=== PATIENT | female | born 1990 | race Caucasian/White ===

== ENCOUNTER → 2018-09-15 08:48 | Outpatient (CLI) | payer OTHER, SELFPAY ==
[2018-09-15 10:45] LABS: Absolute Lymphocyte Count 2.45 X10^3/ul (0.83-4.51); Absolute Neutrophil Count 2.5 X10^3/uL (2.0-7.7); Basophil# 0.05 X10^3/uL; Basophil% 0.8 % (0-1); Eosinophil# 0.66 X10^3/uL; Eosinophils% 10.7 % (0-5); Hematocrit 45.7 % (37-47); Hemoglobin 14.7 g/dl (12.0-15.0); Lymphocyte # 2.45 X10^3/ul (4.0); Lymphocyte % 39.6 % (19-41); Mean Corp Hgb Conc 32.2 g/gl (32-36); Mean Corpuscular Hgb 30.6 pg (27.0-32.0); Mean Corpuscular Volume 95.2 fL (81-99); Mean Platelet Vol. 10.3 fl (6.2-12.0); Monocyte# 0.51 X10^3/uL; Monocyte% 8.2 % (0-10); Neutrophil # 2.52 X10^3/uL (2.7-7.7); Neutrophil % 40.7 % (47-70); Platelet Count 273 K/mm3 (150-450); RBC Distribution Width CV 12.6 % (11.6-14.6); White Blood Count 6.2 K/mm3 (4.4-11.0)
[2018-09-15 10:46] LABS: POSITIVE COUNT NO; POSITIVE DIFFERENTIAL NO; POSITIVE MORPHOLOGY NO
[2018-09-18 08:33] LABS: Alternaria tenuis <0.10 kU/L (Class 0); Ash, White 0.11 kU/L (Class 0/I); Aspergillus fumigatus 1.29 kU/L (Class II); Bermuda Grass 3.06 kU/L (Class III); Black Walnut 0.23 kU/L (Class 0/I); Cat Hair / Dander,Stand >100 kU/L (Class VI); Cedar, Mountain 0.11 kU/L (Class 0/I); Cladosporium herbarum <0.10 kU/L (Class 0); Cockroach, American <0.10 kU/L (Class 0); Cottonwood 0.19 kU/L (Class 0/I); Dog Epithelia 8.69 kU/L (Class IV); Elm, American White 0.15 kU/L (Class 0/I); Immunoglobulin E 1417 IU/mL (0-100); Maple/Box Elder 3.21 kU/L (Class III); Mulberry, White <0.10 kU/L (Class 0); Oak, White 0.21 kU/L (Class 0/I); Pecan 0.16 kU/L (Class 0/I); Penicillium Notatum <0.10 kU/L (Class 0); Pigweed, Rough <0.10 kU/L (Class 0); Russian Thistle 0.21 kU/L (Class 0/I); Sheep Sorrel 0.24 kU/L (Class 0/I); Sycamore, American 0.18 kU/L (Class 0/I)
[2018-09-20 09:14] LABS: Mouse Urine 0.38 kU/L (Class I)
[2018-09-20 09:15] LABS: Immunoglobulin E 1482 IU/mL (0-100)
== END ==
PROVIDERS: Family Provider Family Medicine; PCP Family Medicine; Referring Provider Internal Medicine Critical Care Medicine; Visit Provider Internal Medicine Critical Care Medicine
DX: J45.909 Unspecified asthma, uncomplicated (principal)
CPT/HCPCS: 36415; 82785; 85025; 86003

== ENCOUNTER → 2018-09-28 07:01 | Outpatient (CLI) | payer OTHER, SELFPAY ==
--- NOTE | 2018-09-28 15:54 | PFTCOMP ---
COMPLETE PULMONARY FUNCTION TEST INTERPRETATION Brief HPI: Patient is a 28 year old female, currently under the care of Dr. Enamorado, who presents to [facility] for complete pulmonary function tests secondary to diagnosis of asthma. Respiratory therapist reports good effort and reproducible results. Interpretation: Forced expiration spirometry shows a mild large airways obstructive ventilatory defect with an FEV1 of 78% predicted. There is a significant bronchodilator response in FEV1 by 29% using strict ATS criteria. Spirograms are of good quality and plateau slowly, indicating slowly emptying areas of the lungs. The respiratory flow volume loop shows decreased expiratory flow rates at all lung volumes consistent with airway obstruction. Lung volumes by body plethysmography show a normal total lung capacity at 5.13 L, 96% predicted. All other lung volumes are within normal limits. Diffusion capacity by carbon monoxide is normal at 107% predicted. The airway resistance is elevated. No previous pulmonary function tests were available for review. Impression: Fully reversible mild large airways obstructive ventilatory defect consistent with a diagnosis of asthma.
--- NOTE | 2018-09-28 15:58 | PFTCOMP_ITS ---
COMPLETE PULMONARY FUNCTION TEST INTERPRETATION Brief HPI: Patient is a 28 year old female, currently under the care of Dr. Enamorado, who presents to [facility] for complete pulmonary function tests secondary to diagnosis of asthma. Respiratory therapist reports good effort and reproducible results. Interpretation: Forced expiration spirometry shows a mild large airways obstructive ventilatory defect with an FEV1 of 78% predicted. There is a significant bronchodilator response in FEV1 by 29% using strict ATS criteria. Spirograms are of good quality and plateau slowly, indicating slowly emptying areas of the lungs. The respiratory flow volume loop shows decreased expiratory flow rates at all lung volumes consistent with airway obstruction. Lung volumes by body plethysmography show a normal total lung capacity at 5.13 L, 96% predicted. All other lung volumes are within normal limits. Diffusion capacity by carbon monoxide is normal at 107% predicted. The airway resistance is elevated. No previous pulmonary function tests were available for review. Impression: Fully reversible mild large airways obstructive ventilatory defect consistent with a diagnosis of asthma.
== END ==
PROVIDERS: Family Provider Family Medicine; PCP Family Medicine; Referring Provider Internal Medicine Critical Care Medicine; Visit Provider Internal Medicine Critical Care Medicine
DX: J45.909 Unspecified asthma, uncomplicated (principal)
CPT/HCPCS: 94060; 94726; 94729

== ENCOUNTER → 2018-12-14 15:26 | Outpatient (CLI) | payer OTHER, SELFPAY ==
[2018-12-14 15:02] VITALS: BMI 30.4
== END ==
PROVIDERS: Family Provider Family Medicine; PCP Family Medicine; Referring Provider Nurse Practitioner Acute Care; Visit Provider Nurse Practitioner Acute Care
DX: J45.909 Unspecified asthma, uncomplicated (principal)
CPT/HCPCS: 87070; 87205; 87633

== ENCOUNTER → 2019-12-31 13:26 | Outpatient (CLI) | payer OTHER, SELFPAY ==
[2019-10-22 15:57] VITALS: BMI 29.8
[2019-12-31 15:30] LABS: Absolute Lymphocyte Count 1.31 X10^3/uL (0.83-4.51); Absolute Neutrophil Count 6.4 X10^3/uL (2.0-7.7); Basophil# 0.08 X10^3/uL; Basophil% 0.9 % (0-1); Eosinophil# 0.43 X10^3/uL; Hematocrit 44.5 % (37-47); Hemoglobin 14.5 g/dL (12.0-15.0); Lymphocyte # 1.31 X10^3/ul (4.0); Lymphocyte % 15.2 % (19-41); Mean Corp Hgb Conc 32.6 g/dL (32-36); Mean Corpuscular Hgb 30.6 pg (27.0-32.0); Mean Corpuscular Volume 93.9 fL (81-99); Mean Platelet Vol. 9.3 fl (6.2-12.0); Monocyte% 4.6 % (0-10); NRBC Flagged by Analyzer 0 % (0-5); Neutrophil # 6.36 X10^3/uL (2.7-7.7); Neutrophil % 73.8 % (47-70); Platelet Count 309 K/mm3 (150-450); RBC Distribution Width SD 41.9 fl (35.1-43.9); Red Blood Count 4.74 M/mm3 (4.2-5.4); White Blood Count 8.6 K/mm3 (4.4-11.0)
[2019-12-31 15:59] LABS: Vitamin D,25 Hydroxy 14.2 ng/mL
[2019-12-31 16:04] LABS: ALB/GLOB Ratio 0.8 RATIO (0.9-2.4); AST(SGOT) 11 U/L (15-37); Alanine Aminotransfer ALT/SGPT 66 U/L (13-56); Albumin, Serum 3.3 g/dL (3.2-5.0); Alkaline Phosphatase 71 U/L (45-117); Anion Gap 5 (5-15); BUN 16 mg/dL (7-18); BUN/Creat Ratio 18.8 RATIO (10-20); Calcium,Total 8.4 mg/dL (8.5-10.1); Chloride 112 mmol/L (98-107); Creatinine, Serum 0.85 mg/dL (0.55-1.02); EST Glomerular Filtration Rate 85 mL/min (>60); Est Glom Filt Rate - Afr Amer 102 mL/min (>60); Estradiol 22.3 pg/mL; Free T3 2.1 pg/mL (2.18-3.98); Globulin 3.9 g/dL (2.2-4.2); Glucose 84 mg/dL (74-106); Protein, Total 7.2 g/dL (6.4-8.2); Sodium Level 142 mmol/L (136-145); T4 Free Direct 0.89 ng/dL (0.76-1.46); Thyroid Stim Hormone (TSH) 1.44 uIU/mL (0.358-3.74)
== END ==
PROVIDERS: PCP Family Medicine; Referring Provider Family Medicine; Visit Provider Family Medicine
DX: R53.83 Other fatigue (principal); R61 Generalized hyperhidrosis; E78.5 Hyperlipidemia, unspecified; Z51.81 Encounter for therapeutic drug level monitoring
CPT/HCPCS: 36415; 80053; 82306; 82670; 84439; 84443; 84481; 85025

== ENCOUNTER → 2021-02-14 08:10 | Outpatient (CLI) | payer OTHER, SELFPAY ==
[2021-02-14 07:46] VITALS: BMI 34.7
[2021-02-14 08:48] LABS: Absolute Lymphocyte Count 2.19 X10^3/uL (0.83-4.51); Absolute Neutrophil Count 5.5 X10^3/uL (2.0-7.7); Basophil# 0.05 X10^3/uL; Basophil% 0.6 % (0-1); Eosinophil# 0.54 X10^3/uL; Eosinophils% 6.2 % (0-5); Hematocrit 46.4 % (37-47); Hemoglobin 14.7 g/dL (12.0-15.0); Lymphocyte # 2.19 X10^3/ul (4.0); Mean Corp Hgb Conc 31.7 g/dL (32-36); Mean Corpuscular Volume 94.7 fL (81-99); Mean Platelet Vol. 9.7 fl (6.2-12.0); Monocyte# 0.45 X10^3/uL; Monocyte% 5.1 % (0-10); NRBC Flagged by Analyzer 0 % (0-5); Neutrophil # 5.49 X10^3/uL (2.7-7.7); Neutrophil % 62.8 % (47-70); Platelet Count 305 K/mm3 (150-450); RBC Distribution Width CV 12.7 % (11.6-14.6); RBC Distribution Width SD 43.8 fl (35.1-43.9); White Blood Count 8.8 K/mm3 (4.4-11.0)
[2021-02-19 03:06] LABS: Cytoplasmic Ab (C-ANCA) <1:20 titer (Neg:<1:20)
[2021-02-19 09:28] LABS: Immunoglobulin E 2290 IU/mL (6-495); Perinuclear Ab (P-ANCA) <1:20 titer (Neg:<1:20)
== END ==
LOC: PAVLAB 08:12
PROVIDERS: PCP Family Medicine; Referring Provider Internal Medicine Critical Care Medicine; Visit Provider Internal Medicine Critical Care Medicine
DX: J45.909 Unspecified asthma, uncomplicated (principal)
CPT/HCPCS: 36415; 82785; 85025; 86256

== ENCOUNTER → 2024-03-10 | Outpatient (CLI) | payer BC, SELFPAY ==
[2024-03-10 17:30] LABS: Absolute Lymphocyte Count 1.94 X10^3/uL (0.83-4.51); Absolute Neutrophil Count 4.8 X10^3/uL (2.0-7.7); Basophil# 0.08 X10^3/uL; Eosinophil# 0.46 X10^3/uL; Eosinophils% 5.9 % (0-5); Hematocrit 42.4 % (37-47); Hemoglobin 13.5 g/dL (12.0-15.0); Lymphocyte # 1.94 X10^3/ul (0.83-4.51); Mean Corp Hgb Conc 31.8 g/dL (32-36); Mean Corpuscular Hgb 29.3 pg (27.0-32.0); Mean Corpuscular Volume 92.2 fL (81-99); Mean Platelet Vol. 9.3 fl (6.2-12.0); Monocyte# 0.46 X10^3/uL; Monocyte% 5.9 % (0-10); NRBC Flagged by Analyzer 0 % (0-5); Neutrophil # 4.79 X10^3/uL (2.7-7.7); Neutrophil % 61.9 % (47-70); Platelet Count 341 K/mm3 (150-450); RBC Distribution Width CV 13.5 % (11.6-14.6); RBC Distribution Width SD 45.5 fl (35.1-43.9); White Blood Count 7.8 K/mm3 (4.4-11.0)
[2024-03-10 17:53] LABS: ALB/GLOB Ratio 0.9 RATIO (0.9-2.4); AST(SGOT) 11 U/L (15-37); Alanine Aminotransfer ALT/SGPT 56 U/L (13-56); Albumin, Serum 3.2 g/dL (3.2-5.0); Alkaline Phosphatase 77 U/L (45-117); Anion Gap 5 (5-15); BUN 15 mg/dL (7-18); BUN/Creat Ratio 20.4 RATIO (10-20); Calcium,Total 8.7 mg/dL (8.5-10.1); Chloride 110 mmol/L (98-107); Creatinine, Serum 0.74 mg/dL (0.55-1.02); EST Glomerular Filtration Rate 97 mL/min (>60); Est Glom Filt Rate - Afr Amer 118 mL/min (>60); Ferritin 7 ng/mL (8-252); Free T3 2.7 pg/mL (2.18-3.98); Globulin 3.7 g/dL (2.2-4.2); Glucose 88 mg/dL (74-106); Iron 100 ug/dL (50-170); Potassium 3.9 mmol/L (3.5-5.1); Protein, Total 6.9 g/dL (6.4-8.2); Sodium Level 140 mmol/L (136-145); T4 Free Direct 0.96 ng/dL (0.76-1.46); Thyroid Stim Hormone (TSH) 1.82 uIU/mL (0.358-3.74)
== END | disposition home or self-care (01) ==
PROVIDERS: PCP Family Medicine; Referring Provider Family Medicine; Visit Provider Family Medicine
DX: D64.9 Anemia, unspecified (principal); R53.83 Other fatigue; N92.1 Excessive and frequent menstruation with irregular cycle
CPT/HCPCS: 36415; 80053; 82728; 83540; 84439; 84443; 84481; 85025

== ENCOUNTER → 2025-08-01 | Outpatient (CLI) | payer BC, SELFPAY ==
--- OUTSIDE RECORDS SUMMARY | 2024-11-17 16:00 | XMS RPT_ITS ---
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 Name Role Phone KYLIE BEASLEY Admitting Unavailable KYLIE BEASLEY Attending Unavailable MALYS, TAMRA A Primary Care Unavailable BRAZOFSKCHRISTO Dewitt Attending Unavailable MALYS, TAMRA A Primary Care Unavailable KYLIE BEASLEY Attending Unavailable MALYS, TAMRA A Primary Care Unavailable BEASLEYKYLIE AGUILAR Attending Unavailable MALYS, TAMRA A Primary Care Unavailable KYLIE BEASLEY Referring Unavailable MALYS, TAMRA A Primary Care Unavailable BEASLEY, KYLIE Referring Unavailable MALYS, TAMRA A Primary Care Unavailable PROBLEMS DATE TYPE CONDITION / CODE ATTENDING STATUS [facility] 09/27/2024 Active Post-operative s florez / Z98.890(ICD-10) KYLIE BEASLEY [facility] 09/27/2024 Active Menorrhagia with regular cycle / N92.0(ICD-10) KYLIE BEASLEY [facility] 09/27/2024 Active Dysmenorrhea / N94.6(ICD-10) KYLIE BEASLEY [facility] 09/27/2024 Active Preop examinatio n / Z01.818(ICD-10) KYLIE BEASLEY [facility] 09/20/2024 Active Pre-op testing / Z01.818(ICD-10) NA Active [facility] 09/03/2024 Active Pre-op evaluatio n / Z01.818(ICD-10) NA Active [facility] PROCEDURES No Procedure Records Found RESULTS CNOV Observed: 11/17/2024 3:00 PM Status: COMPLETED Source: [facility] Office Visit (GMIGFV) CRISPIN SPARKS ([id number]) 1990 F Date Time Provider Department 11/17/24 3:00 PM KYLIE BEASLEY [facility] During your visit today, we recorded the following information about you: Pulse Blood pressure Weight Height 94/minute 139/91 105.7 kg 1.6 m Last Period 09/06/24 Kylie Beasley MD 11/17/2024 4:19 PM Addendum [facility] SECTION FOR MINIMALLY INVASIVE GYNECOLOGIC SURGERY OUTPATIENT VISIT DATE 11/17/2024 OUTPATIENT VISIT TYPE POST OPERATIVE FOLLOW UP History: Crispin Sparks is a 34 year old female here for post operative follow up appointment. She underwent Laparoscopic supracervical hysterectomy, bilateral salpingectomy, left oophorectomy, excision of endometriosis, cystoscopy on 09/27/24 indicated for chronic pelvic pain, endometriosis . She reports feeling really well since her procedure. Her appetite is normal . She describes her pain as no pain presently. She is currently taking nothing for pain control. She has not had sexual intercourse since the procedure. Denies nausea/vomiting/chest pain/shortness of breath. Ambulating well. No issues with voiding or BMs. Had 3-4 days of light spotting at time expected menses past month. No other vag bleeding. FINDINGS 1) Exam under anesthesia: Normal external genitalia, normal size uterus, no rectovaginal nodularity, cervical ectropion. 2) Laparoscopy: Anterior cul-de-sac - normal-appearing Posterior cul-de-sac - Several dark brown subcentimeter lesions on the posterior cervix peritoneum and the left uterosacral ligament insertion involved with adhesions of the left ovary and endometrioma. Left ovarian fossa - Obliterated by the left ovary adhesions to the left uterosacral lesion. Right ovarian fossa - normal-appearing Uterosacral ligaments - Left uterosacral involved as described above. Uterus - normal-appearing Ovaries and fallopian tubes - Fallopian tubes normal bilaterally, normal right ovary, left ovary with 2 cm endometrioma. Bowel and appendix - normal-appearing, mild adhesions of the cecum to the right abdominal wall -lysed Diaphragmatic peritoneum - normal-appearing 3) Cystoscopy: bilateral ureters patent as indicated by strong jets of urine from bilateral ureteral ostia and intact bladder urothelium, normal urinary trigone. PATHOLOGY FINAL DIAGNOSIS A. Posterior cervix, biopsy: - Benign stroma. B. Right fallopian tube, salpingectomy: - Unremarkable fallopian tube. C. Left uterosacral ligament, excision: - Endometriosis. D. Uterus and left adnexa; supracervical hysterectomy and left salpingo-oophorectomy: - Secretory endometrium. - Endometriosis, ovary. - Unremarkable fallopian tube. Eva Vogel RN November 17, 2024 3:03 PM ROS: Constitutional: Denies fever or chills GI: Denies abdominal pain, nausea, vomiting, bloody stools or diarrhea : Denies dysuria Integument: Denies rash Psychiatric: Denies depression or anxiety Exam: The sensitive examination was discussed with the Patient or Patient's Authorized Portable Track Line Marker. As applicable, any other physician, advance practice provider, medical student, or other health professional student that will be observing or involved in the sensitive examination for educational or training purposes was discussed with the Patient or Authorized Portable Track Line Marker. The Patient or Authorized Portable Track Line Marker has agreed to proceed with the sensitive examination. (Sensitive examination includes inspection and/or palpation of the breasts, pelvis, prostate and anorectal regions) Vitals: 11/17/24 1459 BP: 139/91 Pulse: 94 Weight: 105.7 kg (233 lb) Height: 160 cm (5' 3) No data recorded Body mass index is 41.27 kg/m?. GENERAL: pleasant, female in no apparent distress HEENT: Normocephalic, atraumatic DERMATOLOGY: Normal, without lesions and non-hirsute CHEST: Normal inspiratory effort ABDOMEN: Abdomen soft, nondistended, non-tender. Incisions well healed. PELVIC: External genitalia normal. Vagina normal on speculum exam. Cervix normal appearing without lesion or defect. Silver nitrate applied to external cervical os LOWER EXTREMITIES: No pitting edema and no skin changes Assessment: Ms. Crispin Sparks is a 34 year old female presenting for postop check status post Laparoscopic supracervical hysterectomy, bilateral salpingectomy, left oophorectomy, excision of endometriosis, cystoscopy . She reports doing well without concerns. Plan: - Reviewed intra-op findings, photos and pathology results. -May continue to increase physical activity as tolerated -May resume intercourse -Follow up with general provider for annual care. Advised will need continued routine screening pap smears. (Last 11/2023- WNL) -All questions answered and pt agrees with plan Kylie Beasley MD Allergies As of Date: 11/17/2024 Noted Allergy Reaction DUST MITES 07/10/2016 14 - Other: See Comments Comments: Sneezing red eyes--- Cat, dog EPOXY RESIN 07/10/2016 2 - Rash Date Reviewed: 11/17/2024 Reviewed by: Eva Vogel RN - Fully Assessed Reason for Visit: Post-Op Visit [1236] Primary Visit Diagnosis:Postoperative state [Z98.890] Other Visit Diagnosis:Endometriosis [N80.9] Prescriptions as of 11/17/2024 - tiotropium bromide (SPIRIVA RESPIMAT) 1.25 mcg/actuation inhaler - levalbuterol tartrate HFA 45 mcg/actuation inhaler - FLUoxetine (PROZAC) 40 mg capsule Take 40 mg by mouth once daily. - triamcinolone acetonide (NASACORT ALLERGY NASAL) Use in the nose. - omeprazole (PRILOSEC) 10 mg capsule Take 10 mg by mouth once daily. - fluticasone-salmeterol (ADVAIR DISKUS) 250-50 mcg/dose dsdv Inhale 1 Puff as instructed twice daily. - Cetirizine (ZYRTEC) 10 mg cap Take by mouth. - montelukast (SINGULAIR) 10 mg tablet Take 10 mg by mouth daily at bedtime. - albuterol (PROVENTIL) 2.5 mg/0.5 mL nebulizer solution Use 2.5 mg via nebulizer every 6 hours as needed. Problem List As Of Date 11/17/2024 Noted Resolved Weight loss of more than 10% body weight [R63.4]01/17/2017 Abdominal cramping [R10.9] 01/17/2017 Diarrhea [R19.7] 01/17/2017 Asthma [J45.909] 04/07/2017 Eczema [L30.9] 04/07/2017 Seasonal allergies [J30.2] 04/07/2017 Weight loss [R63.4] 04/07/2017 Class 2 obesity in adult [E66.812] 09/03/2024 GERD (gastroesophageal reflux disease) [K21.9] 09/03/2024 Encounter Status:Closed by KYLIE BEASLEY on 11/17/24 PROGRESS Observed: 11/17/2024 3:00 PM Status: COMPLETED Source: [facility] ID: [id number] Author: KYLIE BEASLEY MD Service: ? Author Type: Physician Type: Progress Notes Filed: 11/17/2024 16:19 Note Text: [facility] SECTION FOR MINIMALLY INVASIVE GYNECOLOGIC SURGERY OUTPATIENT VISIT DATE 11/17/2024 OUTPATIENT VISIT TYPE POST OPERATIVE FOLLOW UP History: Crispin Sparks is a 34 year old female here for post operative follow up appointment. She underwent Laparoscopic supracervical hysterectomy, bilateral salpingectomy, left oophorectomy, excision of endometriosis, cystoscopy on 09/27/24 indicated for chronic pelvic pain, endometriosis . She reports feeling really well since her procedure. Her appetite is normal . She describes her pain as no pain presently. She is currently taking nothing for pain control. She has not had sexual intercourse since the procedure. Denies nausea/vomiting/chest pain/shortness of breath. Ambulating well. No issues with voiding or BMs. Had 3-4 days of light spotting at time expected menses past month. No other vag bleeding. FINDINGS 1) Exam under anesthesia: Normal external genitalia, normal size uterus, no rectovaginal nodularity, cervical ectropion. 2) Laparoscopy: Anterior cul-de-sac - normal-appearing Posterior cul-de-sac - Several dark brown subcentimeter lesions on the posterior cervix peritoneum and the left uterosacral ligament insertion involved with adhesions of the left ovary and endometrioma. Left ovarian fossa - Obliterated by the left ovary adhesions to the left uterosacral lesion. Right ovarian fossa - normal-appearing Uterosacral ligaments - Left uterosacral involved as described above. Uterus - normal-appearing Ovaries and fallopian tubes - Fallopian tubes normal bilaterally, normal right ovary, left ovary with 2 cm endometrioma. Bowel and appendix - normal-appearing, mild adhesions of the cecum to the right abdominal wall -lysed Diaphragmatic peritoneum - normal-appearing 3) Cystoscopy: bilateral ureters patent as indicated by strong jets of urine from bilateral ureteral ostia and intact bladder urothelium, normal urinary trigone. PATHOLOGY FINAL DIAGNOSIS A. Posterior cervix, biopsy: - Benign stroma. B. Right fallopian tube, salpingectomy: - Unremarkable fallopian tube. C. Left uterosacral ligament, excision: - Endometriosis. D. Uterus and left adnexa; supracervical hysterectomy and left salpingo-oophorectomy: - Secretory endometrium. - Endometriosis, ovary. - Unremarkable fallopian tube. Eva Vogel RN November 17, 2024 3:03 PM ROS: Constitutional: Denies fever or chills GI: Denies abdominal pain, nausea, vomiting, bloody stools or diarrhea : Denies dysuria Integument: Denies rash Psychiatric: Denies depression or anxiety Exam: The sensitive examination was discussed with the Patient or Patient's Authorized Portable Track Line Marker. As applicable, any other physician, advance practice provider, medical student, or other health professional student that will be observing or involved in the sensitive examination for educational or training purposes was discussed with the Patient or Authorized Portable Track Line Marker. The Patient or Authorized Portable Track Line Marker has agreed to proceed with the sensitive examination. (Sensitive examination includes inspection and/or palpation of the breasts, pelvis, prostate and anorectal regions) Vitals: 11/17/24 1459 BP: 139/91 Pulse: 94 Weight: 105.7 kg (233 lb) Height: 160 cm (5' 3) No data recorded Body mass index is 41.27 kg/m?. GENERAL: pleasant, female in no apparent distress HEENT: Normocephalic, atraumatic DERMATOLOGY: Normal, without lesions and non-hirsute CHEST: Normal inspiratory effort ABDOMEN: Abdomen soft, nondistended, non-tender. Incisions well healed. PELVIC: External genitalia normal. Vagina normal on speculum exam. Cervix normal appearing without lesion or defect. Silver nitrate applied to external cervical os LOWER EXTREMITIES: No pitting edema and no skin changes Assessment: Ms. Crispin Sparks is a 34 year old female presenting for postop check status post Laparoscopic supracervical hysterectomy, bilateral salpingectomy, left oophorectomy, excision of endometriosis, cystoscopy . She reports doing well without concerns. Plan: - Reviewed intra-op findings, photos and pathology results. -May continue to increase physical activity as tolerated -May resume intercourse -Follow up with general provider for annual care. Advised will need continued routine screening pap smears. (Last 11/2023- WNL) -All questions answered and pt agrees with plan Kylie Beasley MD PROGRESS Observed: 10/12/2024 9:00 AM Status: COMPLETED Source: [facility] HNO ID: [id number] Author: CHRISTO JUAREZ APRN.PATIENT INSURANCE CLERK Service: ? Author Type: Nurse Practitioner Type: Progress Notes Filed: 10/12/2024 09:04 Note Text: [facility] Department of Minimally Invasive FOLDER MACHINE OPERATOR Surgery [facility] PATIENT NAME: Crispin Sparks DATE: 10/12/2024 Patient Name and verified: Yes Patient Location: [place] This Virtual Visit was completed using My Chart Zoom platform. I have communicated my name and active licensure. The patient's identity and physical location were verified at the time of this visit. Either the patient or their legal patient services representative has been informed of the risks and benefits of -- and alternatives to -- treatment through a remote evaluation and consents to proceed with the evaluation remotely. Chief Complaint CC/REASON FOR VISIT: Post Op History of Present Illness: Crispin is a 34 year old who presents for a post op [facility] visit. SURGERY AND DATE: 09/27/2024 [facility] [place] with Dr. Beasley PATHOLOGY: FINAL DIAGNOSIS A. Posterior cervix, biopsy: - Benign stroma. B. Right fallopian tube, salpingectomy: - Unremarkable fallopian tube. C. Left uterosacral ligament, excision: - Endometriosis. D. Uterus and left adnexa; supracervical hysterectomy and left salpingo-oophorectomy: - Secretory endometrium. - Endometriosis, ovary. - Unremarkable fallopian tube. SUBJECTIVE/INTERVAL HISTORY: Crispin Sparks reports that she feels well. No fever or chills. No shortness of breath, cough, or chest pain. No incisional redness, swelling, or drainage. Patient reports that her appetite is good. No abdominal pain, nausea, vomiting, diarrhea, or constipation. No dysuria, gross hematuria, urinary frequency, urinary urgency, or incontinence. Feels well but is fatigued Rates post op pain as 1/10 on average the past few days. She is not taking OTC pain medications still. Last day taking narcotic pain medication? NA She is up and moving every 2 hours during the day Past Medical History: PAST MEDICAL HISTORY Diagnosis Date Asthma Chronic pain in female pelvis Dysmenorrhea Eczema Seasonal allergies 04/07/2017 Shingles Family History: Family History Problem Relation Age of Onset Asthma Father other (Cancer, unknown type) Father 65 other (uterine cancer) Mother 50 Asthma Brother Past Surgical History: PAST SURGICAL HISTORY Procedure Laterality Date COLONOSCOPY FLX DX W/COLLJ SPEC WHEN PFRMD 04/08/2017 Colonoscopy ESOPHAGOGASTRODUODENOSCOPY TRANSORAL DIAGNOSTIC 04/08/2017 repeat in 2-3 yrs for questionable area of Barnes's Social History: Social History Tobacco Use Smoking status: Every Day Current packs/day: 0.50 Average packs/day: 0.5 packs/day for 14.9 years (7.5 ttl pk-yrs) Types: Cigarettes Start date: 2009 Passive exposure: Current Smokeless tobacco: Never Vaping Use Vaping status: Never Used Substance Use Topics Alcohol use: Not Currently Comment: has a drink 1x/month Drug use: No Allergies: ALLERGIES Allergen Reactions Dust Mites Other: See Comments Sneezing red eyes--- Cat, dog Epoxy Resin Rash Allergies updated: Yes Medications: Current Outpatient Medications Medication Sig ibuprofen (MOTRIN) 600 mg tablet Take 1 tablet by mouth every 6 hours as needed for pain. acetaminophen (TYLENOL EXTRA STRENGTH) 500 mg tablet Take 2 tablets by mouth every 6 hours as needed for pain. Senna 8.6 mg tab Take 1 tablet by mouth two times a day. tiotropium bromide (SPIRIVA RESPIMAT) 1.25 mcg/actuation inhaler levalbuterol tartrate HFA 45 mcg/actuation inhaler FLUoxetine (PROZAC) 40 mg capsule Take 40 mg by mouth once daily. triamcinolone acetonide (NASACORT ALLERGY NASAL) Use in the nose. omeprazole (PRILOSEC) 10 mg capsule Take 10 mg by mouth once daily. fluticasone-salmeterol (ADVAIR DISKUS) 250-50 mcg/dose dsdv Inhale 1 Puff as instructed twice daily. Cetirizine (ZYRTEC) 10 mg cap Take by mouth. montelukast (SINGULAIR) 10 mg tablet Take 10 mg by mouth daily at bedtime. albuterol (PROVENTIL) 2.5 mg/0.5 mL nebulizer solution Use 2.5 mg via nebulizer every 6 hours as needed. No current facility-administered medications for this visit. Medications reviewed in detail and updated PRN. Yes Physical Exam: LMP 09/06/2024 (Exact Date) GENERAL: pleasant, euthymic sounding female in no apparent distress Physical exam otherwise deferred Recent labs/Diagnostic studies: I have thoroughly reviewed this patients previous notes, encounters, labs, and results prior to this visit. Assessment and Plan Assessment AND Plan Postop check 1) Discussed results of pathology and implications with patient. 2) Postop restrictions and wound care reviewed. 3) Keep follow up with Dr. Beasley on 11/17/2024. Appointments for Next 60 Days Date Time Provider Location Dept Phone 10/12/2024 9:00 AM CHRISTO JUAREZ [email or web address] [phone] 11/08/2024 10:00 AM LAWSON NICKY [facility] [phone] 11/17/2024 11:45 AM KYLIE BEASLEY [email or web address] [phone] SIGNATURE: Christo Juarez APRN.CNP CNPN Observed: 09/29/2024 12:00 AM Status: COMPLETED Source: [facility] Telephone (GYNMN) CRISPIN SPARKS ([id number]) 1990 F Date Time Provider Department 09/29/24 KYLIE BEASLEY GYNN[facility] During your visit today, we recorded the following information about you: Marce Campos RN 09/29/2024 9:59 AM Signed [facility] SECTION FOR MINIMALLY INVASIVE GYNECOLOGIC SURGERY AND CHRONIC PELVIC PAIN Postop call Called Patient. Left message. POD# NUMBERS 1-12: [address] Beasley. Procedure: (from op note) Laparoscopic supracervical hysterectomy, bilateral salpingectomy, left oophorectomy, excision of endometriosis, cystoscopy Marce Campos RN September 29, 2024 9:59 AM TonyUsman Claudia Merle 10/05/2024 8:19 AM Signed Patient returning nurse call Transferred to NT/no answer will send message Althea Knight RN 10/06/2024 10:05 AM Signed Phoned pt, verified name/ [facility] SECTION FOR MINIMALLY INVASIVE GYNECOLOGIC SURGERY AND CHRONIC PELVIC PAIN Postop call POD# [address] Beasley. Procedure: (from op note) 09/27/24 Laparoscopic supracervical hysterectomy, bilateral salpingectomy, left oophorectomy, excision of endometriosis, cystoscopy Reassured regarding typical pain and recovery following laparoscopic surgery. Reviewed pain medication use for optimal postoperative pain control. Reminded to ambulate every 2 hours while awake Doing well, managing pain with Tylenol and Ibuprofen just as needed. Pt is up and around ambulating. Reminded of normal return of bowel function, management of constipation. Daily BM, taking SENNA only as needed now. Reminded contact numbers are listed in their postop instructions After hours fellow manager of community relations [phone] Office number [phone] (M-F, 8-4:30) Patient advised to call 911 or report to ED Fever (temperature greater than 100.4 degrees) Pain that is worsening or not relieved by pain medications. Nausea, vomiting or diarrhea that is not improving Blood, pus, or opening of incision(s) Heavy vaginal bleeding (more than a period) Shortness of breath Swollen or tender lower leg Lightheadedness, dizziness, or fainting Patient expressed understanding. Post op appointment: 10/12/24 PATIENT INSURANCE CLERK VV 11/17/23 Dr. Beasley Patient questions/concerns: Pt removed umbilical gauze dressing after surgery as advised. Left lower quadrant lap incision draining clear pink drainage. No redness or swelling. Pt knows to monitor AND call office for incisional redness, swelling, or pus like thick drainage. Questions about FMLA - work place is telling pt paperwork is incomplete. Reviewed scanned FMLA docs with return date of 11/09/23. Per pt, discussed with Dr. Beasley, OK for 8 week recovery/return to work. 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 Will forward to payroll secretary Yudy Bryan for assistance. DAPHNE Noel Ellen L, RN 10/06/2024 2:39 PM Signed Phoned pt, verified name/ Advised FMLA paperwork has been revised, faxed AND sent to pt via . Understanding voiced. Althea Dolan RN Allergies As of Date: 09/29/2024 Noted Allergy Reaction DUST MITES 07/10/2016 14 - Other: See Comments Comments: Sneezing red eyes--- Cat, dog EPOXY RESIN 07/10/2016 2 - Rash Date Reviewed: 09/27/2024 Reviewed by: Malissa Valdez RN - Fully Assessed Reason for Visit: Post Op Follow Up [3947] Prescriptions as of 10/06/2024 - ibuprofen (MOTRIN) 600 mg tablet Take 1 tablet by mouth every 6 hours as needed for pain. - acetaminophen (TYLENOL EXTRA STRENGTH) 500 mg tablet Take 2 tablets by mouth every 6 hours as needed for pain. - Senna 8.6 mg tab Take 1 tablet by mouth two times a day. - tiotropium bromide (SPIRIVA RESPIMAT) 1.25 mcg/actuation inhaler - levalbuterol tartrate HFA 45 mcg/actuation inhaler - FLUoxetine (PROZAC) 40 mg capsule Take 40 mg by mouth once daily. - triamcinolone acetonide (NASACORT ALLERGY NASAL) Use in the nose. - omeprazole (PRILOSEC) 10 mg capsule Take 10 mg by mouth once daily. - fluticasone-salmeterol (ADVAIR DISKUS) 250-50 mcg/dose dsdv Inhale 1 Puff as instructed twice daily. - Cetirizine (ZYRTEC) 10 mg cap Take by mouth. - montelukast (SINGULAIR) 10 mg tablet Take 10 mg by mouth daily at bedtime. - albuterol (PROVENTIL) 2.5 mg/0.5 mL nebulizer solution Use 2.5 mg via nebulizer every 6 hours as needed. Problem List As Of Date 09/29/2024 Noted Resolved Weight loss of more than 10% body weight [R63.4]01/17/2017 Abdominal cramping [R10.9] 01/17/2017 Diarrhea [R19.7] 01/17/2017 Asthma [J45.909] 04/07/2017 Eczema [L30.9] 04/07/2017 Seasonal allergies [J30.2] 04/07/2017 Weight loss [R63.4] 04/07/2017 Class 2 obesity in adult [E66.812] 09/03/2024 GERD (gastroesophageal reflux disease) [K21.9] 09/03/2024 Encounter Status:Closed by MARCE CAMPOS on 09/29/24 ANES POSTPROC EVAL Observed: 09/27/2024 12:41 PM Status: COMPLETED Source: [facility] HNO ID: [id number] Author: AYDEE SANDERS MD Service: Critical Care Author Type: Anesthesiologist Type: Anesthesia Postprocedure Evaluation Filed: 09/27/2024 12:41 Note Text: POST ANESTHESIA EVALUATION NOTE : 1990 Procedure Summary Date: 09/27/24 Room / Location: [place] [address] / OR Anesthesia Start: 952 Anesthesia Stop: 1237 Procedure: LAPAROSCOPIC HYSTERECTOMY SUPRACERVICAL UTERUS 250 G OR LESS; REMOVAL OF TUBE(S) AND/OR OVARY(S) (Abdomen) Diagnosis: Menorrhagia with regular cycle Dysmenorrhea Preop examination (Menorrhagia with regular cycle [N92.0]) (Dysmenorrhea [N94.6]) (Preop examination [Z01.818]) Surgeons: Kylie Beasley MD Responsible Provider: Aydee Sanders MD Anesthesia Type: general ASA Status: 3 Anesthesia Type: general Airway Type: ETT Last Vitals Vitals Value Taken Time BP 147/85 09/27/24 1233 Temp 36 ?C (96.8 ?F) 09/27/24 1233 Pulse 91 09/27/24 1240 Resp 20 09/27/24 1240 SpO2 94 % 09/27/24 1240 Vitals shown include unfiled device data. Post Anesthesia Patient Status Patient Evaluation: PACU. Anticipated Disposition: phase 2 then home. Neurological Status: aware and responsive. Pulmonary Status: breathing comfortably on room air Airway Control: returned to baseline unsupported. Cardiovascular Status: stable. Pain Management: clinically adequate - multimodal analgesia pain management approach Postoperative Hydration: acceptable. Intraoperative Events: no significant anesthesia events Post Operative Nausea/Vomiting Status: no significant post operative nausea or vomiting Recommendation: continue current plan of care and further care per PACU/ICU/floor team. Anesthesia Observations No Documentation SIGNATURE: Aydee Sanders MD PATIENT NAME: Crispin Sparks DATE: September 27, 2024 TIME: 12:41 PM CSN: [id number] SURGICAL PATHOLOGY Collected: 11:06 AM Status: C Source: [facility] Order Comment: Specimen Type : TISSUE SPECIMEN Ordering Facility: [facility] Address: [address] [place] [address] TYPE CODE TESTS RESULT OUT OF RANGE REFERENCE UNITS PATHOLOGY [id number] CASE REPORT Result Comment: Surgical Pat hology Report Case: [id number] Authorizing Provider: Kylie Beasley MD Collected: 09/27/2024 11:06 AM Ordering Location: [facility] Received: 09/27/2024 02:17 PM Surgical Services Pathologist: Kiran Ramirez MD Specimens: A) - Cervix, Biopsy, posterior cervix B) - Fallopian Tube, Right, Resection C) - Peritoneum, Biopsy, left uteral sacral igament D) - Uterus without Cervix, uterus, left fallopian tube and left ovary PATHOLOGY [id number] FINAL DIAGNOSIS Result Comment: A. Posterior cervix, biopsy: - Benign stroma. B. Right fallopian tube, salpingectomy: - Unremarkable fallopian tube. C. Left uterosacral ligament, excision: - Endometriosis. D. Uterus and left adnexa; supracervical hysterectomy and left salpingo- oophorectomy: - Secretory endometrium. - Endometriosis, ovary. - Unremarkable fallopian tube. ACV/dsh 09/29/2024 OLOGY [id number] GROSS DESCRIPTION Result Comment: A. Cervix, B iopsy Received in formalin on Telfa gauze is one piece of higginbotham, rubbery measuring 0.8 x 0.7 x 0.6 cm. Totally submitted in one cassette. Gross examination performed at [facility], [address] [place], [place] [id number] 09/27/2024 8:17 PM B. Fallopian Tube, Right, Resection Received in formalin, labeled fallopian tube, right, resection is a fimbriated fallopian tube, measuring 6.5 cm in length and up to 1.0 cm in diameter. The serosa is purple-higginbotham higginbotham and glistening. The fimbriated end is freely movable, with a villous appearance. Sectioning reveals a pinpoint lumen, devoid of contents. Portable Track Line Marker sections, to include the entire fimbriated end, longitudinally trisected, are submitted in cassette B1. C. Peritoneum, Biopsy Received in formalin, labeled left uterosacral ligament is a portion of pink- higginbotham, rubbery tissue, measuring 2.0 x 1.3 x 0.7 cm. The specimen is trisected and entirely submitted in cassette C1. D. Uterus without Cervix Received in formalin, labeled uterus, left fallopian tube and left ovary is a previously, partially sectioned uterus, without cervix, measuring 5.0 cm (fundus-lower uterine segment), 5.0 cm (lateral-lateral), and 3.5 cm (anterior from posterior). Attached is a left, fimbriated fallopian tube, measuring 8.0 cm in length and up to 0.8 cm in diameter. Also present is a left ovary, measuring 3.3 x 2.0 x 1.0 cm, and weighing 3.4 g. The serosa is pink-higginbotham and glistening. Bivalving reveals a 4.0 cm long, 3.0 cm wide endometrial cavity, lined by pink-red, glistening endometrium, averaging 0.2 cm in thickness. The underlying myometrium is higginbotham- pink, mildly trabeculated, and averages 1.5 cm in thickness. No masses, nodules or lesions are identified. Sectioning the fallopian tube reveals a pinpoint lumen, devoid of contents. Sectioning the ovary reveals a unilocular cystic cavity, lined by brown-red material, measuring 2.8 cm in greatest dimension. A scant amount of uninvolved ovarian parenchyma is grossly identified. Portable Track Line Marker sections are submitted, as follows: D1: Anterior lower uterine segment D2: Posterior lower uterine segment D3: Anterior uterine wall D4: Posterior uterine wall D5: Left fallopian tube, to include entire fimbriated end D6: Left ovary, to include cystic structure AKA September 27, 2024 5:06 PM Gross examination performed at [facility], [facility] [place] [address] PATHOLOGY CDX2 CLINICAL HISTORY Result Comment: Pre-op diagn osis: Menorrhagia with regular cycle [N92.0] Dysmenorrhea [N94.6] Preop examination [Z01.818] PATHOLOGY [facility] FINAL PERFORMING LAB Result Comment: Diagnostic i nterpretation performed at [facility], [address] [place], [place] [id number] CLIA# [id number] Silver [place]are Assembler: Jorgito Howe M.D. PATHOLOGY ADD1 ADDENDUM 1: Result Comment: The uterus w eighs 36.5 grams. Addendum electronically signed by Kiran Ramirez MD on 10/01/2024 at 3:07 PM Performed By: #### S #### [facility] CLIA [id number] [address] [place] [address] DESK [place] [id number] [facility] ANES PROCEDURE NOTE Observed: 09/27/2024 10:30 AM Status: COMPLETED Source: [facility] HNO ID: [id number] Author: BEBETO ROMO DO Service: Anesthesiology Author Type: Resident Type: Anesthesia Procedure Notes Filed: 09/27/2024 10:31 Note Text: ANESTHESIOLOGY PROCEDURE NOTE Airway General Information Procedure Start Time/Medication Administration: 09/27/2024 10:04 AM Procedure End Time: 09/27/2024 10:05 AM Patient location during procedure: OR Timeout Performed Pre-procedure: timeout performed Consent Obtained: Yes 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, 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 Staffing Anesthesiologist: Aydee Sanders MD Resident: Bebeto Romo DO Performed by: resident Indications and Patient Condition Indications for airway management: anesthesia Preoxygenated: yes anesthesia circuit Patient position: sniffing Method: asleep Difficult Mask: No Final Airway Details Final airway type: endotracheal airway Final Endotracheal Airway: ETT Cuffed: yes Successful intubation technique: video laryngoscopy Devices used: Vogel and intubating stylet Endotracheal tube insertion site: oral Blade: Natanael Blade size: #4 ETT size (mm): 7.0 Measured from: lips Measurement (cm): 22 Placement verified by: capnometry Cormack-Lehane Classification: grade I - full view of glottis Number of attempts at approach: 1 Airway not difficult SIGNATURE: Bebeto Romo DO PATIENT NAME: Crispin Sparks DATE: September 27, 2024 TIME: 10:30 AM CSN: [id number] OPERATIVE NO Observed: 09/27/2024 9:53 AM Status: COMPLETED Source: [facility] HNO ID: [id number] Author: KYLIE BEASLEY MD Service: Gynecology Author Type: Physician Type: Operative Report Filed: 09/28/2024 21:42 Note 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 LOG ID: [id number] SURGERY/PROCEDURE DATE: 09/27/2024 INCISION/PROCEDURE START TIME: 10:28 AM INCISION CLOSE/PROCEDURE END TIME: 12:18 PM SURGEON(S)/PROCEDURALIST(S) AND IT ADMINISTRATOR(S): Surgeons and Role: * Kylie Beasley MD - Primary * Brenda De Los Santos MD - Resident - Assisting * Rosita Perez MD - Fellow Nurse Practitioner: Francisca Mchugh APRN.CNP SURGERY/PROCEDURE(S): Laparoscopic supracervical hysterectomy, bilateral salpingectomy, left oophorectomy, excision of endometriosis, cystoscopy ANESTHESIA: General FINDINGS 1) Exam under anesthesia: Normal external genitalia, normal size uterus, no rectovaginal nodularity, cervical ectropion. 2) Laparoscopy: Anterior cul-de-sac - normal-appearing Posterior cul-de-sac - Several dark brown subcentimeter lesions on the posterior cervix peritoneum and the left uterosacral ligament insertion involved with adhesions of the left ovary and endometrioma. Left ovarian fossa - Obliterated by the left ovary adhesions to the left uterosacral lesion. Right ovarian fossa - normal-appearing Uterosacral ligaments - Left uterosacral involved as described above. Uterus - normal-appearing Ovaries and fallopian tubes - Fallopian tubes normal bilaterally, normal right ovary, left ovary with 2 cm endometrioma. Bowel and appendix - normal-appearing, mild adhesions of the cecum to the right abdominal wall -lysed Diaphragmatic peritoneum - normal-appearing 3) Cystoscopy: bilateral ureters patent as indicated by strong jets of urine from bilateral ureteral ostia and intact bladder urothelium, normal urinary trigone. SPECIMENS: ID Type Source Tests Collected by Time Destination A : posterior cervix Tissue Peritoneum, Biopsy SURGICAL PATHOLOGY Kylie Beasley MD 09/27/2024 11:06 AM B : Tissue Fallopian Tube, Right, Resection SURGICAL PATHOLOGY Kylie Beasley MD 09/27/2024 11:13 AM C : left uteral sacral igament Tissue Peritoneum, Biopsy SURGICAL PATHOLOGY Kylie Beasley MD 09/27/2024 11:33 AM D : uterus, left fallopian tube and left ovary Tissue Uterus without Cervix SURGICAL PATHOLOGY Kylie Beasley MD 09/27/2024 11:46 AM COMPLICATIONS: None PRE-OP/PRE-PROCEDURE DIAGNOSIS: Chronic pelvic pain POST-OP/POST-PROCEDURE DIAGNOSIS: Same, suspected endometriosis- pathology pending IV Fluids: 800 mL Urine Output: 50 mL Estimated Blood Loss: 25 mL Implantable Devices: NONE Drains: Ortega catheter (removed) Identification: Crispin Sparks is a 34 year old female with chronic pelvic pain. Pelvic MRI showed: LEFT ADNEXAL ENDOMETRIOMA, NO OTHER IMAGING FEATURES OF DEEP PELVIC ENDOMETRIOSIS SEEN. RIGHT OVARY DEMONSTRATES SOME PAUCITY OF FOLLICLES WITH PREDOMINANTLY STROMAL APPEARANCE. Uterus Size: 6.9 x 3.3 x 4.5 cm She was counseled about all the risks, benefits, alternatives, complications, indications, and personnel of the procedures performed which she accepted. An informed consent was signed. PROCEDURE: The patient was taken to the operating room with an IV in place. Sequential compression devices were placed on her legs bilaterally. A time out was performed to confirm the correct patient, procedures, and allergies. She was induced under general endotracheal anesthesia without complication and an orogastric tube was inserted. She was placed in the low dorsal lithotomy position using Boubacar stirrups with careful attention to pressure points. Her arms were tucked at the sides using padded foam. An examination under anesthesia was performed with the above intraoperative findings noted. The patient was then prepped and draped in the normal sterile fashion. A Ortega catheter was placed into the bladder. A Graves speculum was then placed into the vagina, and the anterior lip of the cervix was grasped with a single-tooth tenaculum. The cervix serially dilated, and the Romina uterine manipulator was inserted with a 6 cm tip and tommy cup. The speculum was removed from the vagina, and the tenaculum was removed from the cervix. Attention was then turned to the abdomen where a 5 mm intraumbilical vertical skin incision was made with an 11 blade scalpel. A Veress needle was used to achieve insufflation. The abdomen was insufflated to a maximum filling pressure of 15 mmHg with opening pressure <5mmHg. Entry into the abdomen was performed with a 5mm optic trocar under vision. The laparoscope was then placed through the trocar and confirmed entry into the peritoneum without incident, specifically without any apparent injury to the underlying bowel or bladder. Five mm ports were then placed as accessory ports in the bilateral lower quadrants and in the LUQ under direct visualization. The patient was placed in the Trendelenburg position and a thorough survey of the abdomen was performed with the above intraoperative findings noted. Mild adhesion of the cecum to the right abdominal wall were lysed. Attention was next placed on the left side. Adhesions of the sigmoid to the left pelvic brim were lysed. The left retroperitoneum was developed in a medial approach and uterolysis was performed to the uterine cervix. The peritoneum overlying the ureter was found to have endometriosis like lesions and was resected including suspected lesion at the left uterosacral ligament. Specimen was passed through a lateral trocar for pathology . Several lesions on the posterior cervix peritoneum were resected and the adhesions between the ovary and left ovarian fossa were lysed. During dissection the left endometrioma ruptured and brown chocolate like fluid was evacuated. The left round ligament was divided and the IP ligament was skeletonized, sealed and cut. The left adnexa was left connected to the uterus. The anterior leaf of the broad was thenextended down to the anterior vagina cup and the posterior leaf of the broad ligament was then taken down to the level of the uterosacral ligaments. The left uterine vessels were then skeletonized. With the ureter in view, the uterine vessels were then sealed, cut and lateralized. Attention the turned to the right side. The right mesosalpinx was transected using the bipolar being certain to avoid the IP ligament. Fallopian tube was transected at cornua and passed off as specimen. The round ligament was sealed and cut and the anterior leaf of the broad was then extended down to the anterior vagina cup. The uteroovarian ligament was sealed and cut and the posterior leaf of the broad ligament was then taken down to the level of the uterosacral ligaments. The right uterine vessels were then skeletonized. With the ureter in view, the uterine vessels were then sealed, cut and lateralized. The bladder was dissected caudad. With the vagina exposed circumferentially around the cup the uterine amputation was then performed. Using monopolar energy on a L hook device, we started anteriorly and continued around circumferentially to transect the uterus from the cervix. The manipulator was then removed and the endocervical canal was coagulated and ablated. The uterus was placed in an endobag and brought to the umbilicus. The umbilical incision was extended to 2cm. The Mitch retractor was placed through the umbilicus into the bag. Serial morcellation was performed at the umbilicus with an 11 blade until the specimen was removed entirely. There was no evidence of damage to the Mitch bag and morcellation was completely contained. The pelvis was copiously irrigated and cleared of all clots and debris. The bilateral ureters were identified retroperitoneally and noted to be vermiculating. All the pedicles were hemostatic. Interceed was placed over the cervical stump A cystoscopy was performed which revealed brisk bilateral ureteral jets without injury to bladder mucosa, no foreign body in place. The ports were removed under direct laparoscopic visualization. The camera was removed from the abdomen and the pneumoperitoneum was allowed to escape. Fascia at umbilicus was closed with 0- Vicryl. All skin incisions were then closed with 4-0 monocryl. Ports sites were covered with surgical glue. A digital sweep of the vaginal canal was performed by Dr. beasley and it was ascertained that no instruments or other foreign bodies are retained within the cavity. Sponge, lap, and needle counts were correct times two and the patient was taken to the recovery room with stable vital signs after tolerating the procedure well. SIGNATURE: Rosita Perez MD PATIENT NAME: Crispin Siddiqui [facility] DATE: September 27, 2024 TIME: 12:23 PM PAGER/CONTACT #: I performed the procedure with assistance. Kylie Beasley MD ANES PRE-OP Observed: 09/27/2024 8:59 AM Status: [facility]PLETED [id number] Author: AYDEE SANDERS MD Service: Critical Care Author Type: Anesthesiologist Type: Anesthesia Preprocedure Evaluation Filed: 09/27/2024 09:00 Note Text: ANESTHESIOLOGY DAY OF SURGERY NOTE : 1990 Procedure Information Date/Time: 09/27/2445 Procedure: LAPAROSCOPIC HYSTERECTOMY SUPRACERVICAL UTERUS 250 G OR LESS; REMOVAL OF TUBE(S) AND/OR OVARY(S) Location: [facility] OR11 / [facility] OR Surgeons: Kylie Beasley MD Estimated body mass index is 38.97 kg/m? as calculated from the following: Height as of this encounter: 160 cm (5' 3). Weight as of this encounter: 99.8 kg (220 lb). Most recent hematocrit and potassium results: Hematocrit 42.1 05/10/2024 Relevant Problems GI (+) GERD (gastroesophageal reflux disease) PULMONARY (+) Asthma I - PHYSICAL EVALUATION AIRWAY Patient intubated: No. Tracheostomy tube not present Mallampati: II. TM distance: >3 FB. Neck ROM: full ROM without neurological symptoms. Mouth opening: adequate. Short neck: no. Thick neck: no Hogan present: no Microretrognathia/Micronagthia/Recessed Chin: No DENTAL Dental findings: teeth intact. Additional exam findings: no II - ANESTHESIA PLAN ASA Score: 3 Anesthetic Plan: general Airway type: ETT The patient is not a current smoker. NPO Status: adequate Beta Edmar Administration of chronic beta edmar medication not planned. Monitoring Plan Monitoring plan: standard ASA. Post Procedure Analgesic Plan Postoperative analgesic plan: multimodal analgesia. Informed Consent Anesthetic risks, benefits, alternatives, personnel and consent discussed: yes. Patient / Responsible Republican agrees to proceed: yes Patient / Surrogate agrees to blood products: Yes DNR status not reviewed with patient and/or family prior to surgery. Significant changes in the patient condition since the History and Physical, not otherwise documented in primary service progress note: no. Potential Anesthesia issues that may suggest increased risk of complications or contraindication to planned procedure: none. Discussed the possibility of lip / dental damage: yes Vitals Value Taken Time BP 125/74 09/27/24702 Pulse 72 09/27/24702 Resp 20 09/27/24702 Temp 36.7 ?C (98.1 ?F) 09/27/24702 SpO2 97 % 09/27/24702 Facility-Administered Medications as of 09/27/2024 Medication Dose Route Frequency - lidocaine 10 mg/mL (1 %) 1-2 mg injection (XYLOCAINE) 0.1-0.2 mL INTRADERMAL PRN - lactated ringers iv infusion 5-30 mL/hr INTRAVENOUS CONTINUOUS - NaCl 0.9% iv flush bag 20 mL INTRAVENOUS PRN - ceFAZolin iv piggyback 2 g in D5W (iso-osmotic) 100 mL (ANCEF) 2 g INTRAVENOUS Pre-Op Once - [COMPLETED] acetaminophen 1,000 mg tab(s) (TYLENOL) 1,000 mg ORAL ONCE - [COMPLETED] celecoxib 400 mg cap(s) (CeleBREX) 400 mg ORAL ONCE - [COMPLETED] phenazopyridine 200 mg tab(s) (PYRIDIUM) 200 mg ORAL Pre-Op Once - scopolamine (delivers 1 mg over 3 days) 1 Patch (TRANSDERM-SCOP) 1 Patch TRANSDERMAL q 72 HR And - scopolamine - REMOVE PATCH OTHER q 72 HR And - scopolamine - VERIFY patch OTHER q 8 H - [COMPLETED] promethazine 12.5 mg tab(s) (PHENERGAN) 12.5 mg ORAL Pre-Op Once Outpatient Medications as of 09/27/2024 Medication Sig - FLUoxetine (PROZAC) 40 mg capsule Take 40 mg by mouth once daily. - triamcinolone acetonide (NASACORT ALLERGY NASAL) Use in the nose. - omeprazole (PRILOSEC) 10 mg capsule Take 10 mg by mouth once daily. - fluticasone-salmeterol (ADVAIR DISKUS) 250-50 mcg/dose dsdv Inhale 1 Puff as instructed twice daily. - Cetirizine (ZYRTEC) 10 mg cap Take by mouth. - montelukast (SINGULAIR) 10 mg tablet Take 10 mg by mouth daily at bedtime. - albuterol (PROVENTIL) 2.5 mg/0.5 mL nebulizer solution Use 2.5 mg via nebulizer every 6 hours as needed. - tiotropium bromide (SPIRIVA RESPIMAT) 1.25 mcg/actuation inhaler - levalbuterol tartrate HFA 45 mcg/actuation inhaler I have interviewed and examined the patient. I have reviewed the medical record and/or the pre-anesthesia evaluation, pertinent labs, and test results. This contains updated information obtained within 48 hours of Surgery/Procedure. SIGNATURE: Aydee Sanders MD PATIENT NAME: Crispin Sparks DATE: September 27, 2024 TIME: 8:59 AM CSN: [id number] HISTORY PHYSICAL Observed: 09/27/2024 7:24 AM Status: COMPLETED Source: [facility] HNO ID: [id number] Author: MIRI SPIVEY APRN.CNP Service: Gynecology Author Type: Nurse Practitioner Type: H&P Filed: 09/27/2024 07:33 Note Text: UPDATED HISTORY AND PHYSICAL EXAMINATION PATIENT NAME: Crispin Sparks SERVICE DATE: 09/27/2024 SERVICE TIME: 7:24 AM SERVICE: Gynecology PHYSICAL EXAM MUST BE COMPLETED ON ADMISSION The History and Physical (completed in the past 30 days) has been reviewed and the patient has been examined. The contents accurately reflect the patient's condition with the following additions or revisions since the HANDP was completed. Interval HPI: Patient denies any changes to health since last examination; today Denies any chest pain, palpitations, shortness of breath, Nausea, Vomiting, Diarrhea, Constipation, Abdominal pain, heartburn, cough, fever, or chills. No head ache, Dizziness, Lightheadedness, or Loss of Consciousness. Planned procedure for today is LAPAROSCOPIC HYSTERECTOMY SUPRACERVICAL UTERUS 250 G OR LESS; REMOVAL OF TUBE(S) AND/OR OVARY(S). Medication reconciliation list reviewed in [facility]. Past medical history, past surgical history, social history and family history reviewed and updated in [facility]. ALLERGIES Allergen Reactions Dust Mites Other: See Comments Sneezing red eyes--- Cat, dog Epoxy Resin Rash BP 125/74 Pulse 72 Temp 36.7 ?C (98.1 ?F) Resp 20 Ht 160 cm (5' 3) Wt 99.8 kg (220 lb) LMP 09/06/2024 (Exact Date) SpO2 97% BMI 38.97 kg/m? Physical Examination indicates no changes. On examination today: General: Alert and oriented, no distress, pleasant and cooperative. Lungs: Clear to auscultation bilaterally; nonlabored, no evidence of distress, speaking in full, unlabored sentences Heart: regular rate and rhythm, Normal S1/S2, No significant murmurs, rubs, gallops or thrills appreciated. Abdomen: + BS present, abdomen is soft, non tender, and without guarding. The remainder of the physical exam is noncontributory. Assessment: Menorrhagia with regular cycle; Dysmenorrhea; Preop examination Plan: LAPAROSCOPIC HYSTERECTOMY SUPRACERVICAL UTERUS 250 G OR LESS; REMOVAL OF TUBE(S) AND/OR OVARY(S) This HANDP can be found in the Electronic Medical Record dated 09/03/2024 by Tomasa Salas APRN.CNP. SIGNATURE: Miri Spivey APRN.CNP PATIENT NAME: Crispin Sparks DATE: September 27, 2024 TIME: 7:24 AM TYPE AND SCREEN,30 DAY Collected: 09/20 12:55 PM Status: F Source: [facility] Order Comment: Specimen Type : BLOOD SPECIMEN Ordering Facility: [facility] Address: [address] [place] [address] TYPE CODE TESTS RESULT OUT OF RANGE REFERENCE UNITS LAB [id number] ABO A LAB [id number] RH Positive LAB [id number] ANTIBODY SCREEN Negative Performed By: #### [id number] ## ## [facility] CLIA [id number] [address] [place] [address] [place] HISTORY PHYSICAL Observed: 09/03/2024 2:00 PM Status: COMPLETED Source: [facility] HNO ID: [id number] Author: TOMASA SALAS APRN.CNP Service: ? Author Type: Nurse Practitioner Type: H&P Filed: 09/03/2024 14:14 Note Text: [facility] HISTORY AND PHYSICAL EXAMINATION SERVICE DATE: 09/03/2024 SERVICE TIME: 1:54 PM Patient has been identified by name and date of : Yes Reason for contact: PACC visit Accompanied by: Self This is a virtual visit using [employer] Video Visit. It required patient-provider interaction for the medical decision making as documented below. I have communicated my name and active licensure. The patient's identity and physical location were verified at the time of this visit. Either the patient or their legal patient services representative has been informed of the risks and benefits of and alternatives to treatment through a remote evaluation and consents to proceed with the evaluation remotely. PRIMARY CARE PHYSICIAN: Tamra Duke DO REASON FOR VISIT: Crispin Sparks is a 34 year old female who is scheduled for LAPAROSCOPIC HYSTERECTOMY SUPRACERVICAL UTERUS 250 G OR LESS; REMOVAL OF TUBE(S) AND/OR OVARY(S) at the request of Dr. Kylie Beasley for consultation. My final recommendation will be communicated back to the requesting physician by way of shared medical record or letter. Assessment Asthma Assessment: Daily Advair and Spiriva Denies recent URI or increased dyspnea or wheezing Class 2 obesity in adult Assessment: Body mass index is 38.97 kg/m?. GERD (gastroesophageal reflux disease) Assessment: Managed on Omeprazole Mena Activity Status Index: METS: Walk indoors, such as around the house (1.75 METs) Do light work around the house, such as dusting or washing dishes (2.70 METs) Take care of self; that is eating, dressing, bathing, using the toilet (2.75 METs) Walk a block or two on level ground (2.75 METs) Do moderate work around the house, such as vacuuming, sweeping floors, or carrying in groceries (3.50 METs) Do yardwork, such as raking leaves, weeding, or pushing a power mower (4.50 METs) Climb a flight of stairs or walk up a hill (5.50 METs) DASI Score: 23.45 Patient denies any chest pain or undue shortness of breath with the above physical activity. Clinical Frailty Scale: 3. Well, with treated comorbid disease STOP-Bang Score: Snores loudly Has been observed to stop breathing or choking/gasping during sleep BMI greater than 35 kg/m2 Denies feeling tired, fatigued, or sleepy during the daytime Denies having high blood pressure Patient 50 years old or younger Does not have a large neck Non-male patient STOP-Bang Score: 3 [id number] Score: Age: <65 Sex: female CHF history: No Hypertension history: No Stroke/TIA/thromboembolism history: No Vascular disease history: No Diabetes history: No [id number] Score: 1 ANESTHESIA FINDINGS: Intubation History: No prior intubation Significant Anesthesia Considerations: none Airway History: No prior intubation I - PHYSICAL EVALUATION AIRWAY Patient intubated: No. Tracheostomy tube not present Mallampati: II. TM distance: >3 FB. Neck ROM: full ROM without neurological symptoms. Mouth opening: adequate. Short neck: no. Additional comments: + TMJ- left side . Thick neck: no DENTAL Dental findings: teeth intact. II - ANESTHESIA PLAN Anesthetic plan additional comments: *PACC/TCI - anesthesia choice. Beta Edmar Monitoring Plan Post Procedure Analgesic Plan Prepared for surgery: This patient is optimally prepared for surgery. CONSULTS: Patient does not require consults for optimization at this time. The Following Tests/Procedures Have Been Initiated: EKG not indicated per PACC protocol Planned Anesthetic: Per anesthesia choice Subjective CHIEF COMPLAINT: Pre-op visit HPI: 34 year old female with heavy, painful menses. Has attempted medical management without relief. maging suggestive of endometriosis with suspected left endometrioma. Elected for above surgery REVIEW OF SYSTEMS: PAIN ASSESSMENT: General: No weight loss, malaise or fevers. 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 No neurological symptoms or problems. Respiratory: Negative for URI < 2 weeks, Wheezing + Asthma + snoring Cardiovascular: No history of HTN requiring medication, no history of angina, CHF, CT, cardiac surgery or stents. Denies rest pain, gangrene or revascularization/amputation for PVD. No history of cardiovascular symptoms or problems. 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 Endocrine: No history of diabetes. Has not taken steroids within the past 30 days. No history of endocrinological symptoms or problems. Hematology: No history of bleeding or clotting disorder. Pt is not taking anti-coagulation or platelet medications. No history of hematological symptoms or problems. Oncology: No history of CA metastasis, chemo within 30 days, or radiotherapy within 90 days. Has not lost 10% of body wt in 6 months. No history of oncological symptoms or problems. Psych: Depression Musculoskeletal: Negative for joint pain or swelling, back pain or muscle pain. Skin: Negative for lesions, rash and itching. The patient has the following: ACTIVE PROBLEM LIST Weight Loss of More Than 10% Body Weight Abdominal Cramping Diarrhea Asthma Eczema Seasonal Allergies Weight Loss Class 2 Obesity in Adult Gerd (Gastroesophageal Reflux Disease) Covid Immunization Dates Overdue - Covid-19 Vaccine () Overdue since 07/04/2024 08/21/2022 Imm Admin: COVID-19 vaccine, age 12+ yr, bivalent ([employer]) 12/20/2021 Imm Admin: COVID-19 original vaccine, age 12+ yr, monovalent ([employer] - CEVALLOS TOP) 02/24/2021 Imm Admin: COVID-19 original vaccine, age 12+ yr, monovalent ([employer] - PURPLE TOP) 01/31/2021 Imm Admin: COVID-19 original vaccine, age 12+ yr, monovalent ([employer] - PURPLE TOP) PAST MEDICAL HISTORY Diagnosis Date Asthma Chronic pain in female pelvis Dysmenorrhea Eczema Seasonal allergies 04/07/2017 Shingles PAST SURGICAL HISTORY Procedure Laterality Date COLONOSCOPY FLX DX W/COLLJ SPEC WHEN PFRMD 04/08/2017 Colonoscopy ESOPHAGOGASTRODUODENOSCOPY TRANSORAL DIAGNOSTIC 04/08/2017 repeat in 2-3 yrs for questionable area of Barnes's FAMILY HISTORY Problem Relation Age of Onset Asthma Father other (Cancer, unknown type) Father 65 other (uterine cancer) Mother 50 Asthma Brother Social History Tobacco Use Smoking status: Every Day Current packs/day: 1.00 Average packs/day: 1 pack/day for 11.8 years (11.8 ttl pk-yrs) Types: Cigarettes Start date: 11/07/2012 Passive exposure: Current Smokeless tobacco: Never Vaping Use Vaping status: Never Used Substance Use Topics Alcohol use: Not Currently Comment: has a drink 1x/month Drug use: No Prior to Admission medications as of 04/20/24 0659 Medication Sig Last Dose Taking tiotropium bromide (SPIRIVA RESPIMAT) 1.25 mcg/actuation inhaler Yes FLUoxetine (PROZAC) 40 mg capsule Take 40 mg by mouth once daily. Yes triamcinolone acetonide (NASACORT ALLERGY NASAL) Use in the nose. Yes omeprazole (PRILOSEC) 10 mg capsule Take 10 mg by mouth once daily. Yes fluticasone-salmeterol (ADVAIR DISKUS) 250-50 mcg/dose dsdv Inhale 1 Puff as instructed twice daily. Yes Cetirizine (ZYRTEC) 10 mg cap Take by mouth. Yes montelukast (SINGULAIR) 10 mg tablet Take 10 mg by mouth daily at bedtime. Yes albuterol (PROVENTIL) 2.5 mg/0.5 mL nebulizer solution Use 2.5 mg via nebulizer every 6 hours as needed. Yes Surgical Lubricant Jelly gel For MRI Female Pelvis, MRI department to provide. Administer intra-vaginal Surgilube immediately prior the MRI procedure (total amount to patient toleranace). Patient not taking: Reported on 04/20/2024 levalbuterol tartrate HFA 45 mcg/actuation inhaler No medication comments found. ALLERGIES Allergen Reactions Dust Mites Other: See Comments Sneezing red eyes--- Cat, dog Epoxy Resin Rash Objective PHYSICAL EXAM: VITALS: Resp 18 Ht 5' 3 (1.60m) Wt 220 lb (99.8kg) LMP 08/13/2024 BMI 38.98 kg/(m2). VIDEO EXAM: (if completed, performed via video enabled technology) GENERAL: alert and appropriate, in no distress SKIN: no rash noted EYES: no injection and visual acuity is grossly normal OROPHARYNX: moist mucus membranes NECK: full ROM, no cervical LNs noted RESPIRATORY: breathing non-labored CHEST: equal chest rise with normal respiratory effort HEART: 80 bpm palpated by patient, no edema, JVD or cyanosis ABDOMEN: soft and non-tender NEUROLOGIC: no obvious deficit Diagnostic tests reviewed for today's visit: Lab Value Units Date High Low HB 13.5 g/dL 05/10/2024 15.5 11.5 HCT 42.1 % 05/10/2024 46.0 36.0 WBC 8.69 k/uL 05/10/2024 11.00 3.70 PLT 353 k/uL 05/10/2024 400 150 Instructions Given to Patient: Instructions located in the after visit summary. Patient given verbal and written preop instructions and voices comprehension and compliance. SIGNATURE: Tomasa Salas APRN.PATIENT INSURANCE CLERK PATIENT NAME: Crispin Chen Sparks DATE: 09/03/2024 KIRSHNAN Observed: 09/01/2024 12:00 AM Status: COMPLETED Source: [facility] Telephone (GMIG[facility]) CRISPIN SPARKS ([id number]) 1990 F Date Time Provider Department 09/01/24 KYLIE BEASLEY [facility] During your visit today, we recorded the following information about you: Shauna Thomas 09/01/2024 2:52 PM Signed Received in office fax for FMLA. Please assist. Thank you. Emerita Tee RN 09/01/2024 2:55 PM Signed Scan on 09/01/2024 2:51 PM by Shauna Thomas: Blank JOELLELA Alexia Armenta LPN 09/02/2024 11:08 AM Signed Forms completed and placed on Yudy's desk for Dr. Beasley's signature. Alexia Armenta LPN September 02, 2024 11:07 AM Yudy Bryan 09/06/2024 10:21 AM Signed Scanned and faxed. Allergies As of Date: 09/01/2024 Noted Allergy Reaction DUST MITES 07/10/2016 14 - Other: See Comments Comments: Sneezing red eyes--- Cat, dog EPOXY RESIN 07/10/2016 2 - Rash Date Reviewed: 04/20/2024 Reviewed by: Nicky Lutz MA - Fully Assessed Reason for Visit: CHRISTOPHE Paperwork [4181] Prescriptions as of 09/06/2024 - Surgical Lubricant Jelly gel For MRI Female Pelvis, MRI department to provide. Administer intra-vaginal Surgilube immediately prior the MRI procedure (total amount to patient toleranace). - tiotropium bromide (SPIRIVA RESPIMAT) 1.25 mcg/actuation inhaler - levalbuterol tartrate HFA 45 mcg/actuation inhaler - FLUoxetine (PROZAC) 40 mg capsule Take 40 mg by mouth once daily. - triamcinolone acetonide (NASACORT ALLERGY NASAL) Use in the nose. - omeprazole (PRILOSEC) 10 mg capsule Take 10 mg by mouth once daily. - fluticasone-salmeterol (ADVAIR DISKUS) 250-50 mcg/dose dsdv Inhale 1 Puff as instructed twice daily. - Cetirizine (ZYRTEC) 10 mg cap Take by mouth. - montelukast (SINGULAIR) 10 mg tablet Take 10 mg by mouth daily at bedtime. - albuterol (PROVENTIL) 2.5 mg/0.5 mL nebulizer solution Use 2.5 mg via nebulizer every 6 hours as needed. Problem List As Of Date 09/01/2024 Noted Resolved Weight loss of more than 10% body weight [R63.4]01/17/2017 Abdominal cramping [R10.9] 01/17/2017 Diarrhea [R19.7] 01/17/2017 Asthma [J45.909] 04/07/2017 Eczema [L30.9] 04/07/2017 Seasonal allergies [J30.2] 04/07/2017 Weight loss [R63.4] 04/07/2017 Encounter Status:Closed by SHAUNA THOMAS on 09/01/24 PROGRESS Observed: 2024 3:00 PM Status: COMPLETED Source: [facility] HNO ID: [id number] Author: KYLIE BEASLEY MD Service: ? Author Type: Physician Type: Progress Notes Filed: 2024 15:11 Note Text: VIRTUAL VISIT PROGRESS NOTE This is a virtual visit using [employer] Video Visit. It required patient-provider interaction for the medical decision making as documented below. I have communicated my name and active licensure. The patient's identity and physical location were verified at the time of this visit. Either the patient or their legal patient services representative has been informed of the risks and benefits of -- and alternatives to -- treatment through a remote evaluation and consents to proceed with the evaluation remotely. Crispin Sparks is a 34 year old female seen for pre-op. Hx of heavy, painful menses. Has failed medical management (including OCPs and IUD). Imaging suggestive of endometriosis with suspected left endometrioma. No other . Scheduled for laparoscopic supracervical hysterectomy AND excision of endometriosis. HISTORY REVIEWED (electronic chart updated): PAST MEDICAL HISTORY Diagnosis Date Asthma Chronic pain in female pelvis Dysmenorrhea Eczema Seasonal allergies 04/07/2017 Shingles PAST SURGICAL HISTORY Procedure Laterality Date COLONOSCOPY FLX DX W/COLLJ SPEC WHEN PFRMD 04/08/2017 Colonoscopy ESOPHAGOGASTRODUODENOSCOPY TRANSORAL DIAGNOSTIC 04/08/2017 repeat in 2-3 yrs for questionable area of Barnes's FAMILY HISTORY Problem Relation Age of Onset Asthma Father other (Cancer, unknown type) Father 65 other (uterine cancer) Mother 50 Asthma Brother Social History Tobacco Use Smoking status: Every Day Current packs/day: 1.00 Average packs/day: 1 pack/day for 11.8 years (11.8 ttl pk-yrs) Types: Cigarettes Start date: 11/07/2012 Passive exposure: Current Smokeless tobacco: Never Vaping Use Vaping status: Never Used Substance Use Topics Alcohol use: Yes Comment: has a drink 1x/month Drug use: No Current Outpatient Medications Medication Sig Surgical Lubricant Jelly gel For MRI Female Pelvis, MRI department to provide. Administer intra-vaginal Surgilube immediately prior the MRI procedure (total amount to patient toleranace). (Patient not taking: Reported on 04/20/2024) tiotropium bromide (SPIRIVA RESPIMAT) 1.25 mcg/actuation inhaler levalbuterol tartrate HFA 45 mcg/actuation inhaler FLUoxetine (PROZAC) 40 mg capsule Take 40 mg by mouth once daily. triamcinolone acetonide (NASACORT ALLERGY NASAL) Use in the nose. omeprazole (PRILOSEC) 10 mg capsule Take 10 mg by mouth once daily. CALCIUM CARBONATE/VITAMIN D3 (VITAMIN D-3 ORAL) Take 1 tablet by mouth once daily. fluticasone-salmeterol (ADVAIR DISKUS) 250-50 mcg/dose dsdv Inhale 1 Puff as instructed twice daily. Cetirizine (ZYRTEC) 10 mg cap Take by mouth. montelukast (SINGULAIR) 10 mg tablet Take 10 mg by mouth daily at bedtime. albuterol (PROVENTIL) 2.5 mg/0.5 mL nebulizer solution Use 2.5 mg via nebulizer every 6 hours as needed. No current facility-administered medications for this visit. ALLERGIES Allergen Reactions Dust Mites Other: See Comments Sneezing red eyes--- Cat, dog Epoxy Resin Rash PHYSICAL EXAMINATION: VIDEO EXAM: (if completed, performed via video enabled technology) No exam ASSESSMENT: (Z01.818) Pre-op evaluation (primary encounter diagnosis) (N94.6) Dysmenorrhea (N92.0) Menorrhagia with regular cycle (N80.9) Endometriosis PLAN: Lsc supracervical hyst with BS and LO. Today we reviewed surgery in detail. We discussed R/B/A. Reviewed risks including, but not limited to, bleeding, infection, damage to surrounding structures, nerves, vessels, possible laparotomy, possible blood transfusion. Again reviewed risks vs benefits of supracervical procedure including increased risks of recurrent bleeding and/or pain with preservation of cervix. All questions answered. Informed consent reviewed and sent via . Discussed postop precautions - plan for 8 weeks off work. There are no Patient Instructions on file for this visit. Kylie Beasley MD ALLERGIES DATE TYPE / CODE NAME / CODE REACTION SEVERITY SOURCE 07/10/2016 Environ/[id number](S NOMED CT) DUST MITES OTHER: SEE C [facility] ital 07/10/2016 DRUG INGREDI/[id number](S NOMED CT) EPOXY RESIN RASH [facility] ENCOUNTERS ADMIT/DISCHARGE ACCOUNT NUMBER ADMITTING ENCOUNTER CLASS LOCATION SOURCE 11/17/2024/11/17/19 [id number] [facility] ng:MATTHEW [facility] 10/12/2024/10/12/20 24 [id number] [facility] ng:DAVID [facility] 09/27/2024/09/27/20 24 [id number] KYLIE BEASLEY [facility] ng:SPSROBoom: POOLBed: [address] [place] [address] 09/20/2024/09/20/20 24 [id number] [facility] ng:FELTON [facility] 09/03/2024/09/03/20 24 [id number] [facility] ng:TWYLA [facility] 08/31/2024/08/31/20 24 [id number] [facility] ng:[facility] PAYERS ENCOUNTER GUARANTOR PAYER SUBSCRIBER SOURCE 11/17/2024 Primary Insurance:[employer] Number: [id number] Date:[id number] Name:Mike CRISPIN Siddiqui BOARDDOB: [id number] [place] [address] [facility] 10/12/2024 Primary Insurance:[employer] Number: [id number] Date:5841-57-49Tlcs Name:Mike SPARKSB: [id number] [place], [place] [id number] [place] [address] 09/27/2024 Primary Insurance:BLUE ACCESS PPOPolicy Number: [id number] Date:8148-51-54Vcwi Name:Mike Siddiqui SANDEEB: [id number] [place], [place] [id number] [place] [address] 09/20/2024 Primary Insurance:BLUE ACCESS PPOPolicy Number: [id number] Date:4913-74-54Wwyi Name:Mike SPARKSB: [id number] [place], [place] [id number] [place] [address] 09/03/2024 Primary Insurance:BLUE ACCESS PPOPolicy Number: [id number] Date:2178-09-52Eyko Name:Mike ROA Chen IGNACIOB: [id number] [place], [place] [id number] [place] [address] 2024 Primary Insurance:BLUE ACCESS PPOPolicy Number: [id number] Date:5878-88-66Ftjl Name:Mike Siddiqui SANDEEB: [id number] [place], [place] [id number] [place] [address]
[2025-08-01 13:30] LABS: Cholesterol 196 mg/dL (<=200); Ferritin 19 ng/mL (22-378); Free T3 2.8 pg/mL (2.18-3.98); Low Density Lipoprotein Calc. 120 mg/dL; Triglycerides 140 mg/dL; Very Low Density Lipoprotein 28 mg/dL (5-40); Vitamin B12 726 pg/mL (180-914); Vitamin D,25 Hydroxy 19.9 ng/mL (30-100); cholesterol:hdl ratio screen 4.07
[2025-08-01 14:45] LABS: Iron 37 ug/dL (50-170)
[2025-08-02 13:08] LABS: PROGESTERONE 0.1 ng/mL (.)
[2025-08-04 11:08] LABS: Testosterone, % Free 1.83 % (0.50-2.80); Testosterone, Free 0.26 ng/dL (0.10-0.85)
== END | disposition home or self-care (01) ==
LOC: MTLAB 10:08
PROVIDERS: PCP Family Medicine; Referring Provider Family Medicine; Visit Provider Family Medicine
DX: N95.9 Unspecified menopausal and perimenopausal disorder (principal); E55.9 Vitamin D deficiency, unspecified; E53.8 Deficiency of other specified B group vitamins; E61.1 Iron deficiency; E78.5 Hyperlipidemia, unspecified; R53.83 Other fatigue
CPT/HCPCS: 36415; 80061; 82306; 82607; 82670; 82728; 83540; 84144; 84402; 84403; 84439; 84443; 84481